=== PATIENT | female | born 1950 | race Caucasian/White ===

== ENCOUNTER 2018-08-31 11:34 | Outpatient (CLI) | payer MEDICARE, SELFPAY ==
[2018-09-01 10:11] LABS: Hepatitis C Ab w Rflx HCV PCR Negative (NEGAT)
== END 2018-08-31 11:54 ==
PROVIDERS: PCP Family Medicine; Visit Provider Family Medicine
DX: Z11.59 Encounter for screening for other viral diseases (principal); R69 Illness, unspecified
CPT/HCPCS: 36415; 86803

== ENCOUNTER 2018-09-15 00:55 | Outpatient (CLI) | payer MEDICARE, OTHER, SELFPAY ==
--- NOTE | 2018-09-15 07:30 | MERGE_ITS ---
*[facility]* *[facility]* [address] [place] [address] Date of study: 09/15/2018 Transthoracic Echocardiography M-mode, complete 2D, complete spectral Doppler, and color Doppler *STUDY CONCLUSIONS* Summary: 1. Left ventricle: The cavity size was normal. Wall thickness was normal. Systolic function was at the lower limits of normal. The estimated ejection fraction was 50-55%. Wall motion was normal; there were no regional wall motion abnormalities. Findings consistent with diastolic dysfunction. Doppler parameters are consistent with high ventricular filling pressure. 2. Mitral valve: Mildly thickened leaflets. There was moderate regurgitation. 3. Left atrium: The atrium was moderately to severely dilated. 4. Right ventricle: The cavity size was normal. Wall thickness was normal. Systolic function was normal. 5. Atrial septum: The septum bowed from left to right, consistent with increased left atrial pressure. 6. Tricuspid valve: There was moderate regurgitation. 7. Pulmonary arteries: Pulmonary systolic pressure was increased, in the range of 35mm Hg to 45mm Hg. *PATIENT PRESENTATION* Height: 162.6cm (64in ) S/D Pressure: 92 / 54 Weight: 50.8kg (111.8lb ) BSA: 1.51m^2 Test start time: 07:50 AM. Test stop time: 08:50 AM. 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 This study was interpreted by [facility]. Pertinent images and digital data are archived for permanent storage and are available for subsequent review. No prior study was available for comparison. Study status: Routine. Transthoracic echocardiography. M-mode, complete 2D, complete spectral Doppler, and color Doppler. A Transthoracic Echocardiogram was performed. Scanning was performed from the parasternal, apical, subcostal, and suprasternal notch acoustic windows. Images were obtained using an [id number] cardiac ultrasound machine. Image quality was good. Study completion: The patient tolerated the procedure well. There were no complications. History: PMH: SOB Parkinson's R06.02. *CARDIAC ANATOMY* Left ventricle: The cavity size was normal. Wall thickness was normal. Systolic function was at the lower limits of normal. The estimated ejection fraction was 50-55%. Wall motion was normal; there were no regional wall motion abnormalities. Findings consistent with diastolic dysfunction. Doppler parameters are consistent with high ventricular filling pressure. Aortic valve: Trileaflet; normal thickness leaflets. Mobility was not restricted. Doppler: Transvalvular velocity was within the normal range. There was no stenosis. There was trivial regurgitation. VTI ratio of LVOT to aortic valve: 0.71. Valve area (VTI): 1.9cm^2. Indexed valve area (VTI): 1.3cm^2/m^2. Peak velocity ratio of LVOT to aortic valve: 0.68. Valve area (Vmax): 1.9cm^2. Indexed valve area (Vmax): 1.2cm^2/m^2. Mean velocity ratio of LVOT to aortic valve: 0.69. Valve area (Vmean): 1.9cm^2. Indexed valve area (Vmean): 1.3cm^2/m^2. Mean gradient (S): 2.9mm Hg. Peak gradient (S): 4.5mm Hg. Aorta: Aortic root: The aortic root was normal in size. Ascending aorta: The ascending aorta was normal in size. Mitral valve: Mildly thickened leaflets. Mobility was not restricted. Doppler: Transvalvular velocity was within the normal range. There was no evidence for stenosis. There was moderate regurgitation. Valve area by pressure half-time: 4.7cm^2. Indexed valve area by pressure half-time: 3.1cm^2/m^2. Peak gradient (D): 2.9mm Hg. Left atrium: The atrium was moderately to severely dilated. Atrial septum: The septum bowed from left to right, consistent with increased left atrial pressure. Right ventricle: The cavity size was normal. Wall thickness was normal. Systolic function was normal. Pulmonic valve: Structurally normal valve. Doppler: Transvalvular velocity was within the normal range. There was no evidence for stenosis. There was mild regurgitation. Peak gradient (S): 1.9mm Hg. Tricuspid valve: Structurally normal valve. Doppler: Transvalvular velocity was within the normal range. There was no evidence for stenosis. There was moderate regurgitation. Peak gradient (D): 30.5mm Hg. Pulmonary artery: Pulmonary systolic pressure was increased, in the range of 35mm Hg to 45mm Hg. Right atrium: The atrium was normal in size. Pericardium: Trace pericardial effusion. Systemic veins: Inferior vena cava: Well visualized. The vessel was patent and dilated. The respirophasic diameter changes were blunted (less than 50%). Measurements Left ventricle Value Reference LV ID, ED, PLAX 5.1 cm 3.5 - 6.0 LV ID, ES, PLAX 3.6 cm 2.1 - 4.0 LV PW thickness, ED, PLAX 0.8 cm LV end-diastolic volume, 1-p A2C 92 ml LV ejection fraction, 1-p A2C 51 % LV end-diastolic volume, 1-p A4C 62 ml LV ejection fraction, 1-p A4C 55 % LV e', lateral 0.074 m/sec LV E/e', lateral 12 LV e', medial 0.057 m/sec LV E/e', medial 15 LV e', average 0.065 m/sec LV E/e', average 13 Ventricular septum Value Reference IVS thickness, ED, PLAX 0.8 cm LVOT Value Reference LVOT ID, A-P 1.9 cm LVOT area 2.8 cm^2 LVOT peak velocity, S 0.72 m/sec LVOT mean velocity, S 0.57 m/sec LVOT VTI, S 17.7 cm LVOT peak gradient, S 2.1 mm Hg LVOT mean gradient, S 1.4 mm Hg Stroke volume (SV), LVOT DP 49 ml Stroke index (SV/bsa), LVOT DP 32 ml/m^2 Aortic valve Value Reference Aortic valve peak velocity, S 1.1 m/sec Aortic valve mean velocity, S 0.8 m/sec Aortic valve VTI, S 25.0 cm Aortic mean gradient, S 2.9 mm Hg Aortic peak gradient, S 4.5 mm Hg VTI ratio, LVOT/AV 0.71 Aortic valve area, VTI 1.9 cm^2 Velocity ratio, peak, LVOT/AV 0.68 Aortic valve area, peak velocity 1.9 cm^2 Velocity ratio, mean, LVOT/AV 0.69 Aortic valve area, mean velocity 1.9 cm^2 Aortic valve area/bsa, mean velocity 1.3 cm^2/m^2 Aorta Value Reference Aortic root ID, ED 3.0 cm Ascending aorta ID, A-P, S 3.0 cm RVOT Value Reference RVOT VTI, S 18.2 cm Left atrium Value Reference LA ID, A-P, ES 4.2 cm LA ID/bsa, A-P (H) 2.8 cm/m^2 <=2.2 LA volume/bsa, ES, 1-p A4C 51 ml/m^2 LA volume, ES, 2-p 71 ml LA volume/bsa, ES, 2-p 47 ml/m^2 LA/aortic root ratio 1.4 Mitral valve Value Reference Mitral E-wave peak velocity 0.85 m/sec Mitral A-wave peak velocity 0.63 m/sec Mitral deceleration time 163 ms 150 - 230 Mitral pressure half-time 47 ms Mitral peak gradient, D 2.9 mm Hg Mitral E/A ratio, peak 1.34 Mitral valve area, PHT, DP 4.7 cm^2 Tricuspid valve Value Reference Tricuspid E-wave peak velocity 2.76 m/sec Tricuspid peak gradient, D 30.5 mm Hg Tricuspid regurg peak velocity 3.3 m/sec Tricuspid peak RV-RA gradient 42.5 mm Hg Right atrium Value Reference RA area, ES, A4C 17.6 cm^2 8.3 - 19.5 Pulmonic valve Value Reference Pulmonic peak gradient, S 1.9 mm Hg Legend: (L) and (H) david values outside specified reference range. I have personally reviewed the images and have reviewed and edited the reported findings. Electronically signed by Uziel Lovell 09/15/2018 10:07
== END 2018-09-15 01:15 ==
PROVIDERS: PCP Family Medicine; Visit Provider Family Medicine
DX: R06.02 Shortness of breath (principal); I50.1 Left ventricular failure, unspecified; I08.1 Rheumatic disorders of both mitral and tricuspid valves; G20 Parkinson's disease
CPT/HCPCS: 93306

== ENCOUNTER 2018-09-28 01:55 | Outpatient (CLI) | payer MEDICARE, OTHER, SELFPAY | END 2018-09-28 02:15 | PROVIDERS: PCP Family Medicine; Visit Provider Family Medicine | DX: R00.1 Bradycardia, unspecified (principal); I49.3 Ventricular premature depolarization; I47.1 Supraventricular tachycardia; I49.1 Atrial premature depolarization | CPT/HCPCS: 93225 ==

== ENCOUNTER 2018-09-30 12:36 | Outpatient (CLI) | payer MEDICARE, OTHER, SELFPAY ==
--- NOTE | 2018-10-01 07:24 | HOLTER_ITS ---
HOLTER MONITOR DATE OF DICTATION September 30, 2018 STUDY INDICATIONS: Bradycardia. REQUESTING PROVIDER Not available. FINDINGS The patient was monitored for two days. The baseline rhythm was sinus rhythm with PVCs. The average heart rate was 85 beats per minute, range 58 to 128 beats per minute. Very high PVC burden, 5.6% couplets, 2.2% triplets, and 5% single PVCs, total 12.8%. No ventricular tachycardia. Rare PAC's, 39 total. 3 episodes of supraventricular tachycardia, longest 9 beats, fastest 136 beats per minute. No high degree heart block. No pauses greater than 3 seconds. 9 patient events. All events correlated with PVCs. FINAL INTERPRETATION Very high symptomatic PVC burden, 12.8%, but no ventricular tachycardia. Uziel Lovell M.D. ANUSHA/justino T - 10/01/2018
== END 2018-09-30 12:56 ==
PROVIDERS: PCP Family Medicine; Visit Provider Family Medicine
DX: R00.1 Bradycardia, unspecified (principal); I49.3 Ventricular premature depolarization; I47.1 Supraventricular tachycardia; I49.1 Atrial premature depolarization
CPT/HCPCS: 93227; 93226

== ENCOUNTER 2020-02-11 14:50 | Outpatient (CLI) | payer MEDICARE, OTHER, SELFPAY ==
--- NOTE | 2020-02-11 08:30 | DI.RAD_ITS ---
EXAM: XR SACRUM COCCYX CLINICAL HISTORY: coccyx pain ? fx W19.XXXA FALL. TECHNIQUE: 2D digital imaging was performed. COMPARISON: CT ABD PELVIS WITH CONTRAST from 10/13/2015 FINDINGS: BONES: No acute fracture is present. No bony destructive lesion is seen. The sacrum is partially obsc ured by overlying bowel gas and stool. JOINTS: SI joints and visualized portions of the hip joints are unremarkable. SOFT TISSUE: Normal. IMPRESSION: Unremarkable radiographs of the sacrum and coccyx. DATA REPOSITORY: RADIATION DOSE DELIVERED:
== END 2020-02-11 15:10 ==
PROVIDERS: PCP Family Medicine; Visit Provider Family Medicine
DX: M53.3 Sacrococcygeal disorders, not elsewhere classified (principal); W19.XXXA Unspecified fall, initial encounter
CPT/HCPCS: 72220